=== PATIENT | male | born 1975 | race Caucasian/White ===

== ENCOUNTER 2018-07-25 10:52 | Emergency (ER) | payer OTHER, BC ==
[2018-07-25 11:28] VITALS: RESP 20; O2SAT 98
[2018-07-25] MEDS ORDERED: Tdap Vaccine 0.5 ml Vial (10-64 yrs) IM ONE ×2 (11:33→12:13)
[2018-07-25] MEDS ORDERED: Lidocaine 1% Inj (20ml) INFIL ONE (11:37)
[2018-07-25] MEDS ORDERED: Lidocaine Hydrochloride 5 ML INJ ONE (11:41)
--- NOTE | 2018-07-25 12:08 | C.PDOC ---
History Of Present Illness 43 year old male presents to ED s/p injury to his right eye brow. 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 He describes the pain as a 1/10 in severity. He denies syncope, LOC, headache, weakness, nausea, vomiting, and any other injuries. Patient denies history of tetanus vaccine. Time Seen by Provider: 07/25/18 11:19 Chief Complaint (Nursing): Abnormal Skin Integrity History Per: Patient History/Exam Limitations: no limitations Onset/Duration Of Symptoms: Hrs Current Symptoms Are (Timing): Still Present Location Of Injury: Right: Head (right eyebrow) Quality Of Symptoms: Painful, Draining (blood) Severity: Mild Pain Scale Rating Of: 1 Past Medical History Reviewed: Historical Data, Nursing Documentation, Vital Signs Vital Signs: Last Vital Signs Temp 98.4 F 07/25/18 10:57 Pulse 85 07/25/18 10:57 Resp 20 07/25/18 10:57 BP 146/83 07/25/18 10:57 Pulse Ox 98 07/25/18 10:57 - Medical History PMH: No Chronic Diseases Surgical History: No Surg Hx Family History: States: Unknown Family Hx - Social History Hx Tobacco Use: No Hx Alcohol Use: Yes Hx Substance Use: No - Immunization History Hx Tetanus Toxoid Vaccination: No Hx Influenza Vaccination: Yes Hx Pneumococcal Vaccination: No Review Of Systems Constitutional: Negative for: Fever, Chills, Weakness Eyes: Positive for: Other (laceration to the right eyebrow). Negative for: Vision Change ENT: Negative for: Ear Discharge, Nose Discharge Gastrointestinal: Negative for: Vomiting Skin: Negative for: Rash, Bruising Neurological: Negative for: Weakness, Numbness, Headache, Dizziness, Other (loss of consciousness) Physical Exam - Physical Exam Appears: Well, Non-toxic, No Acute Distress Skin: Normal Color, Warm, Dry Head: Laceration (1.5 mm lacertion to the right eyebrow) Eye(s): bilateral: Normal Inspection, PERRL, EOMI Ear(s): Bilateral: Normal Nose: Normal, No Discharge Oral Mucosa: Moist Throat: Normal, No Erythema, No Exudate Neck: Normal ROM, Supple Chest: Symmetrical, No Deformity Neurological/Psych: Oriented x3, Normal Speech, Normal Cognition ED Course And Treatment O2 Sat by Pulse Oximetry: 98 (in RA) Laceration - Laceration Repair left hand Wound Length (In cm): 1.5cm Description Of Wound: Stellate Wound Cleansed With: Betadine, Sterile Saline Anesthesia: Lidocaine 1% Wound Examination: Irrigated With Saline, No FB With Wound Exploration Wound Closure: Suture Suture Technique And Material Used: Interrupted (with 4-0 ethilon) Wound Complexity: Simple Medical Decision Making Medical Decision Making: Impression: 43 year old male presents to ED s/p injury to his right eye brow. Plan: Tetanus given Laceration repaired Bacitracin applied Re-evaluation. Patient feels better. Discussed results and plan with patient who expresses understanding. All questions answered and there is agreement with the plan to discharge home with instructions. Patient stable for discharge. Return if symptoms persist or worsen. 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 (Kyra Butterfield) - Scribe Statement The provider has reviewed the documentation as recorded by the Scribe (Kyra Butterfield) All medical record entries made by the Scribe were at my direction and personally dictated by me. I have reviewed the chart and agree that the record accurately reflects my personal performance of the history, physical exam, medical decision making, and the department course for this patient. I have also personally directed, reviewed, and agree with the discharge instructions and disposition.
[2018-07-25 12:16] VITALS: BP 112/71; PULSE 77; TEMP 97.3
== END 2018-07-25 12:27 | disposition home or self-care (01) ==
LOC: C.ER 10:52
DX: S01.111A Laceration without foreign body of right eyelid and periocular area, initial encounter (principal); W22.8XXA Striking against or struck by other objects, initial encounter; Y92.89 Other specified places as the place of occurrence of the external cause; Y99.0 Civilian activity done for income or pay

== ENCOUNTER 2018-08-01 15:08 | Emergency (ER) | payer OTHER, BC ==
--- NOTE | 2018-08-01 15:54 | C.PDOC ---
History Of Present Illness Patient is a 43 year old male who presents for suture removal. Patient had injury to the right eyebrow at work and had 4 sutures placed on 07/25/18. Patient denies signs and symptoms of infections, discharged, redness, swelling, pain, vision changes, fevers, and chills. Chief Complaint (Nursing): Suture/Staple Removal Past Medical History Vital Signs: Last Vital Signs Temp 98.1 F 08/01/18 15:28 Pulse 85 08/01/18 15:28 Resp 16 08/01/18 15:28 BP 139/82 08/01/18 15:28 Pulse Ox 98 08/01/18 15:28 Family History: States: Unknown Family Hx - Social History Hx Tobacco Use: No Hx Alcohol Use: Yes Hx Substance Use: No - Immunization History Hx Tetanus Toxoid Vaccination: No Hx Influenza Vaccination: Yes Hx Pneumococcal Vaccination: No Review Of Systems Constitutional: Negative for: Fever, Chills Eyes: Negative for: Pain, Vision Change, Eyelid Inflammation, Redness Physical Exam - Physical Exam Appears: Well, Non-toxic, No Acute Distress Skin: Warm, Dry Eye(s): bilateral: EOMI, right: Other (4 sutures present, healing well, no erythema, swelling,or discharge; nontender) ED Course And Treatment O2 Sat by Pulse Oximetry: 98 Procedure: Wound Repair - Time Performed Time Performed: 15:52 - Time Out Time Out: Side verified, Site verified, Patient ID confirmed - Procedure Procedure: Wound Repair: Removed suture removal and applied steri strips to right upper eyebrow - Performed by Performed by: Mid-level Provider - Indications Indication(s):: Other (s/p sutures to laceration on right upper eyebrow) - Location Location:: Right, Eyebrow - Wound Examination Wound Examination:: Other (Healing well; removed 4 sutures and placed two steri strips.) - Wound repair method Sutures:: # (4) Denise:: Steri-strips (2) Medical Decision Making Medical Decision Making: Laceration repair with 4 sutures plaed on 07/25/18. Removed 4 sutures and applied two steristrips. No signs of infection. Healing well. Disposition - Disposition Disposition: HOME/ ROUTINE Disposition Time: 15:56 Condition: STABLE Additional Instructions: Please allow steri-strips to fall off on their own- do not take them off. You may shower/wash face. If signs/symptoms of infection (fever, chills, redness, swelling, dsicharge), please return to the nearest ER. Please follow up with your PMD in 1-2 days. Instructions: Wound Care (DC), Stitches Removal - Clinical Impression Clinical Impression: Removal of suture, Laceration
[2018-08-01 16:09] VITALS: BP 119/73; PULSE 92; RESP 20; TEMP 98.2; O2SAT 96
== END 2018-08-01 16:09 | disposition home or self-care (01) ==
LOC: C.ER 15:08
DX: S01.111D Laceration without foreign body of right eyelid and periocular area, subsequent encounter (principal)